=== PATIENT | male | born 1980 | race Caucasian/White ===

== ENCOUNTER 2016-11-12 09:26 | Inpatient (IN) | payer OTHER ==
[2016-11-12 10:02] LABS: BASO # 0.1 K/uL (0.0-0.2); BASO % 0.5 % (0.0-2.0); EOS # 0.1 K/uL (0.0-0.7); EOS % 0.7 % (0.0-4.0); HEMATOCRIT 56.3 % (35.0-51.0); LYMPH # 3.9 K/uL (1.0-4.3); LYMPH % 31.3 % (20.0-40.0); MEAN CELL VOLUME 88.2 fL (80.0-94.0); MEAN CORPUSCULAR HEMOGLOBIN 29.4 pg (27.0-31.0); MEAN CORPUSCULAR HGB CONC 33.4 g/dL (33.0-37.0); MEAN PLATELET VOLUME 9.1 fL (7.2-11.7); MONO # 0.8 K/uL (0.0-0.8); MONO % 6.6 % (0.0-10.0); NRBC % 0.2 % (0.0-2.0); RED CELL DISTRIBUTION WIDTH 13.6 % (11.5-14.5); WHITE BLOOD COUNT 12.4 K/uL (4.8-10.8)
[2016-11-12 10:08] LABS: CHLORIDE 95 mmol/L (98-107)
[2016-11-12 10:09] LABS: POTASSIUM 4.4 mmol/L (3.6-5.2); SODIUM 139 mmol/L (132-148)
[2016-11-12 10:11] LABS: ALB/GLOB RATIO 1.2 (1.0-2.1); ALKALINE PHOSPHATASE 115 U/L (38-126); AST/SGOT 62 U/L (17-59); BILIRUBIN,TOTAL 1.2 mg/dL (0.2-1.3); BLOOD UREA NITROGEN 13 mg/dL (9-20); CARBON DIOXIDE 25 mmol/L (22-30); GFR AFRICAN-AMERICAN > 60; TOTAL PROTEIN 9.2 g/dL (6.3-8.3)
[2016-11-12 10:12] LABS: ALT/SGPT 54 U/L (21-72); CALCIUM 9.3 mg/dl (8.6-10.4); GLUCOSE,RANDOM 102 mg/dL (75-110)
[2016-11-12 10:17] LABS: INR 1.1
--- NOTE | 2016-11-12 10:22 | RAD ---
HISTORY: PALPITATIONS COMPARISON: None available. TECHNIQUE: Chest, one view. FINDINGS: Examination limited by habitus and hypoinflation. LUNGS: No focal consolidation. Please note that chest x-ray has limited sensitivity for the detection of pulmonary masses. PLEURA: No significant pleural effusion identified. No definite pneumothorax . CARDIOVASCULAR: The cardiomediastinal silhouette appears within normal limits of size. OSSEOUS STRUCTURES: No acute osseous abnormality identified. VISUALIZED UPPER ABDOMEN: Unremarkable. OTHER FINDINGS: None. IMPRESSION: No focal consolidation, significant pleural effusion, or definite pneumothorax identified.
[2016-11-12 10:41] LABS: THYROID STIMULATING HORMONE 1.19 mIU/L (0.46-4.68)
[2016-11-12] MEDS ORDERED: Sodium Chloride 0.9% 1,000 ML IV ONE ×2 (10:50→11:45)
--- NOTE | 2016-11-12 11:00 | C.PDOC ---
History Of Present Illness 36-year-old male, presents to the emergency department with complaints of chest pain and palpitations x2 days. Patient denies any shortness of breath, cough, fevers, nausea/vomiting, diarrhea, leg pain, dizziness, or any other associated symptoms. No other complaints at this time. Time Seen by Provider: 11/12/16 09:35 Chief Complaint (Nursing): Chest Pain History Per: Patient History/Exam Limitations: no limitations Onset/Duration Of Symptoms: Days Past Medical History Reviewed: Historical Data, Nursing Documentation, Vital Signs Vital Signs: Last Vital Signs Temp 98.7 F 11/12/16 09:42 Pulse 151 H 11/12/16 12:09 Resp 20 11/12/16 12:09 BP 136/81 11/12/16 12:09 Pulse Ox 97 11/12/16 13:10 Family History: States: No Known Family Hx - Social History Hx Tobacco Use: No Hx Alcohol Use: Yes Hx Substance Use: No - Immunization History Hx Tetanus Toxoid Vaccination: No Hx Influenza Vaccination: No Hx Pneumococcal Vaccination: No Review Of Systems Except As Marked, All Systems Reviewed And Found Negative. Constitutional: Negative for: Fever, Chills Cardiovascular: Positive for: Chest Pain, Palpitations Respiratory: Negative for: Shortness of Breath Gastrointestinal: Negative for: Nausea, Vomiting Musculoskeletal: Negative for: Back Pain Skin: Negative for: Rash Neurological: Negative for: Weakness, Numbness, Headache, Dizziness Physical Exam - Physical Exam Appears: Non-toxic, No Acute Distress, Other (anxious) Skin: Warm, Dry, No Rash Eye(s): bilateral: Normal Inspection, PERRL, EOMI Nose: Normal Oral Mucosa: Moist Lips: Normal Appearing Neck: Normal ROM Chest: Symmetrical Cardiovascular: Rhythm Regular (tachycardia) Respiratory: Normal Breath Sounds Gastrointestinal/Abdominal: Soft, No Tenderness Back: Normal Inspection Extremity: Normal ROM, No Pedal Edema DTR: Knee (L): 0 Neurological/Psych: Oriented x3 ED Course And Treatment - Laboratory Results Result Diagrams: 11/12/16 09:51 11/12/16 09:51 ECG: Interpreted By Me, Viewed By Me ECG Rhythm: Sinus Tachycardia ECG Interpretation: No Acute Changes Interpretation Of ECG: left axis deviation Rate From EC O2 Sat by Pulse Oximetry: 97 - Other Rad cxr X-Ray: Viewed By Me, Read By Radiologist Interpretation: Accession No. : [id number]. Patient Name / ID : SARAI CANNON / [id number]. Exam Date : 11/12/2016 09:42:20 ( Approved ). Study Comment : Sex / Age : M / 36Y. Creator : CHARLY MAJANO. Dictator : Jeanne Lawrence MD. Black Top Roller : Dispatch Lead : Jeanne Lawrence MD. Approver2 : Report Date : 11/12/2016 09:56:34. My Comment : . HISTORY: PALPITATIONS. COMPARISON: None available. TECHNIQUE: Chest, one view. FINDINGS: Examination limited by habitus and hypoinflation. LUNGS: No focal consolidation. Please note that chest x-ray has limited sensitivity for the detection of pulmonary masses. PLEURA: No significant pleural effusion identified. No definite pneumothorax . CARDIOVASCULAR: The cardiomediastinal silhouette appears within normal limits of size. OSSEOUS STRUCTURES: No acute osseous abnormality identified. VISUALIZED UPPER ABDOMEN: Unremarkable. OTHER FINDINGS: None. IMPRESSION: No focal consolidation, significant pleural effusion, or definite pneumothorax identified. Progress Note: Blood work, EKG, CXR, UA, UDS ordered and reviewed. Patient admits to drinking alcohol regularly, so IV bolus NS + IV aivan given. No tremors noted on physical exam. 11:45am- Heart rate without significant improvement, still sinus tachycardia with short UT interval, without evidence of delta waves/WPW morphology. Cardizem 20mg IVP given, as well as IV morphine for pain and PO ASA. 2:00pm- Heart rate fluctuates betweem 90-140bpm, regularly , sinus rhythm. Discussed with Dr. Gipson, who agrees with admission for palpitations, tachycardia. Will give PO Cardizem at this time as well. - Scribe Statement The provider has reviewed the documentation as recorded by the Scribe Ankit Baum All medical record entries made by the Scribe were at my direction and personally dictated by me. I have reviewed the chart and agree that the record accurately reflects my personal performance of the history, physical exam, medical decision making, and the department course for this patient. I have also personally directed, reviewed, and agree with the discharge instructions and disposition.
[2016-11-12] MEDS ORDERED: Morphine 4 MG/ML VIAL ONE (11:28)
[2016-11-12 12:49] LABS: RBC URINE 11 /hpf (0-3); URINE BILIRUBIN NEGATIVE (NEGATIVE); URINE BLOOD 2+ (NEGATIVE); URINE COLOR Yellow (YELLOW); URINE GLUCOSE (UA) NORMAL (Normal); URINE KETONE TRACE mg/dL (NEGATIVE); URINE LEUKOCYTE ESTERASE NEG Leu/uL (Negative); URINE PROTEIN 2+ mg/dL (NEGATIVE); URINE UROBILINOGEN NORMAL mg/dL (0.2-1.0); WBC URINE 4 /hpf (0-5)
--- NOTE | 2016-11-12 14:32 | CP.PCM.HP ---
History of Present Illness - History of Present Illness History of Present Illness: COMPREHENSIVE HISTORY & PHYSICAL EXAM HPI 36 years old male brought in to [facility] emergency room with palpitations and generalized feeling tired, fatigue and malaise and unsteady on the gait. On further inquiry patient was drinking more than usual the day before the admission and woke up with severe palpitation.. Patient was evaluated in [facility] H the rhythm showed sinus tachycardia at about 140-150 and sometimes to 170. Patient was given beta lashawn and Cardizem IV push and patient responded witeart rate of about 1:30. On reviewing old charts patient was admitted in 2010 for SVT and [place]. Patient also states that when he drinks heavily. He is experiences palpitation. PAST HIST. there is no history of yobani artery disease, hypertension,betes or previous MA PERSONAL HIST: Smoking. N Alcohol. y Allergy N Travel_- . FAMILY HIST : ROS : Constitutional: Negative for weight change, chills, night sweats, fatigue and usage of assist device. Eyes: Negative for redness, swelling, itching, discharge, vision changes, blurry vision, double vision, glaucoma, cataracts, Ears: Negative for hearing loss, ringing, , tinnitus, vertigo Nose: Negative for rhinorrhea, stuffiness, sniffing, itching, postnasal drip, discoloration, nasal congestion and epistaxis. Throat: Negative for throat clearing, sore throat, hoarseness, difficulty swallowing and difficulty speaking. Respiratory: Negative for cough, chest tightness, sputum or phlegm, chronic cough, hemoptysis, wheezing, snoring at night, pleuritic chest pain and daytime somnolence. Cardiovascular: POS for chest pain, palpitations, orthopnea, PND, NO Edema of legs, leg cramps, angina, claudication, , irregular heartbeat, Neurology: Negative for irritability, muscle weakness, numbness and tingling, seizures, tremors, migraines, slurred speech, syncope, memory loss, mood changes , recurrent headaches Gastrointestinal: Negative for difficulty swallowing, diarrhea, constipation, black stools, rectal bleeding, nausea, flatulence, reflux, poor appetite, changes in bowel habits, abdominal pain Genitourinary: Negative for frequent urination, hematuria, discharge, incontinence, urinary retention, frequent UTI, Psychiatric: Negative for depression, anxiety/panic, suicidal tendencies, Musculoskeletal: Negative for swollen joints, back pain, , neck pain, morning stiffness of joints, . Skin: Negative for rash, ulcers, itching, dry skin and pigmented lesions. P/E: Constitutional: Appears stated age and in no apparent distress. Head: Normocephalic. Ears: External ear canals patent without inflammation. Tympanic membranes intact with normal light reflex and landmark. Eyes: Pupils are central, bilaterally equal, symmetrical and reacts to light with normal movements and no icterus or pallor. Nose: External nares are patent. Mucosa is pink Mouth-Throat: Good general appearance and condition. No post-pharyngeal/oropharyngeal erythema and tonsillar hypertrophy. Good dental hygiene. Neck-Lymphatic: Neck is supple with normal ROM, no thyromegaly, lymph nodes or masses. JVD is normal with no carotid bruit. Lungs: Clear to percussion and auscultation with bilateral normal air entry. Cardiovascular: S1 and S2 are normal with no murmurs, gallops and rub. GI Exam: No hepatomegaly. Abdomen is soft and non-tender. No Organomegaly , masses or hernias are evident and bowel sounds are normal and active. Neurology: Higher function and all cranial nerves intact, with no gross motor or sensory deficit. Superficial and deep reflexes are normal with downwards planters. No cerebellar deficit with normal gait. Musculoskeletal: No tender spots with normal curvature of the spine with no swelling or restricted ROM of the small and large joints. Extremities: Homans sign absent. Intact pulses with no pitting edema, calf tenderness or skin color changes. Skin: No rash, eruptions or abnormal skin pigmentation LAB/RADIOLOGY: ASSESMENT : sinus tachycardia with symptoms probably secondary to alcohol intoxication. Generalized fatigue and weakness and unsteady gait, probably also secondary to alcohol. PLAN: currently, we will add blockers [id number] and observe for alcohol withdrawal. Present on Admission - Present on Admission Any Indicators Present on Admission: No Past Patient History - Infectious Disease Hx of Infectious Diseases: None - Past Social History Smoking Status: Never Smoked - PSYCHIATRIC Hx Substance Use: No - SURGICAL HISTORY Hx Surgeries: Yes Other/Comment: left inguinal hernia. - ANESTHESIA Hx Anesthesia: Yes Hx Anesthesia Reactions: No Meds Allergies/Adverse Reactions: Allergies Allergy/AdvReac Type Severity Reaction Status Date / Time No Known Allergies Allergy Verified 11/12/16 09:40 Results - Vital Signs Recent Vital Signs: Last Vital Signs Temp 98.7 F 11/12/16 09:42 Pulse 151 H 11/12/16 12:09 Resp 20 11/12/16 12:09 BP 136/81 11/12/16 12:09 Pulse Ox 97 11/12/16 14:11 - Labs Result Diagrams: 11/12/16 09:51 11/12/16 09:51
[2016-11-12] MEDS ORDERED: Aspirin 325 mg EC Tablets PO ONE (15:15)
--- NOTE | 2016-11-12 17:45 | US ---
HISTORY: epigastric pain COMPARISON: None available. TECHNIQUE: Sonographic evaluation of the right upper quadrant of the abdomen. FINDINGS: LIVER: Measures 16.2 cm in length.Echogenic liver may be seen in setting of hepatic parenchymal disease or fatty infiltration. No focal hepatic mass identified. The main portal No intrahepatic bile duct dilatation. GALLBLADDER: No gallstones. No gallbladder wall thickening or pericholecystic edema. Negative sonographic Jo's sign as assessed by the trimming machine set up operator. COMMON BILE DUCT: Measures 3 mm. No stones. No dilatation. PANCREAS: Not well-visualized. RIGHT KIDNEY: Measures 12.2 x 5.7 x 5.7 cm. No obstructing calculus or hydronephrosis identified AORTA: Limited visualization appears grossly unremarkable. IVC: Limited visualization appears grossly unremarkable. OTHER FINDINGS: None . IMPRESSION: Echogenic liver may be seen in setting of hepatic parenchymal disease or fatty infiltration.
--- NOTE | 2016-11-13 11:53 | CARD ---
APPROVED REPORT EKG Measurement Heart [id number] NH [id number] <Conclusion> Sinus tachycardia Possible Left atrial enlargement Borderline ECG
--- NOTE | 2016-11-13 11:59 | CARD ---
APPROVED REPORT EKG Measurement Heart [id number] MD [id number] <Conclusion> Sinus tachycardia with short MD Left axis deviation Abnormal ECG
--- NOTE | 2016-11-13 12:01 | CARD ---
APPROVED REPORT EKG Measurement Heart [id number] HI 98P49 [id number] <Conclusion> Sinus tachycardia with short HI Junctional ST depression, probably normal Borderline ECG
--- NOTE | 2016-11-13 12:11 | CARD ---
APPROVED REPORT EXAM: Two-dimensional and M-mode echocardiogram with Doppler and color Doppler. Other Information Quality : GoodRhythm : NSR INDICATION Chest Pain Palpitations TACHYCARDIA M-Mode DIMENSIONS RVDd1.53 (2.1-3.2cm)Left Atrium (MM)3.37 (2.5-4.0cm) IVSd0.87 (0.7-1.1cm)Aortic Root3.40 (2.2-3.7cm) LVDd4.82 (4.0-5.6cm)Aortic Cusp Exc.1.94 (1.5-2.0cm) PWd0.87 (0.7-1.1cm)FS (%) 39 % LVDs2.95 (2.0-3.8cm)LVEF (%)69 (>50%) Aortic Valve AoV Peak Vldtdixf505.7cm/Rhonda Peak GR.14mmHg Mitral Valve MV E Iwgvjyff32.1cm/sMV A Ppcuusbh35.3cm/sE/A ratio1.1 TDI E/Lateral E'0.0E/Medial E'0.0 Tricuspid Valve TR Peak Jxnfzevq507kk/sTR Peak Gr.12tqTyKQHB79cgUq LEFT VENTRICLE The left ventricle is normal size. There is normal left ventricular wall thickness. The left ventricular function is normal. The left ventricular ejection fraction is within the normal range. No regional wall motion abnormalities noted. The left ventricular diastolic function is normal. No left ventricle thrombus noted on this study. There is no ventricular septal defect visualized. There is no left ventricular aneurysm. There is no mass noted in the left ventricle. RIGHT VENTRICLE The right ventricle is normal size. There is normal right ventricular wall thickness. The right ventricular systolic function is normal. ATRIA The left atrium size is normal. The right atrium size is normal. The interatrial septum is intact with no evidence for an atrial septal defect. AORTIC VALVE The aortic valve is normal in structure and function. No aortic regurgitation is present. There is no aortic valvular stenosis. There is no aortic valvular vegetation. MITRAL VALVE The mitral valve is normal in structure and function. There is no evidence of mitral valve prolapse. There is no mitral valve stenosis. There is no mitral valve regurgitation noted. TRICUSPID VALVE The tricuspid valve is normal in structure and function. There is mild tricuspid regurgitation. Right ventricular systolic pressure is estimated at less than 30 mmHg. There is no tricuspid valve prolapse or vegetation. There is no tricuspid valve stenosis. PULMONIC VALVE The pulmonary valve is normal in structure and function. There is no pulmonic valvular regurgitation. There is no pulmonic valvular stenosis. GREAT VESSELS The aortic root is normal in size. The ascending aorta is normal in size. The pulmonary artery is normal. The IVC is normal in size and collapses >50% with inspiration. PERICARDIAL EFFUSION The pericardium appears normal. There is no pleural effusion. <Conclusion> The left ventricular function is normal. The left ventricular ejection fraction is within the normal range. No regional wall motion abnormalities noted.
--- NOTE | 2016-11-13 13:26 | CP.PCM.PN ---
Subjective - Date & Time of Evaluation Date of Evaluation: 11/13/16 Time of Evaluation: 13:25 - Subjective Subjective: CHIEF COMPLAINTS TODAY : NO FURTHER PALPITATION STILL UNSTEADY ON FEET ROS. HEENT : N. Resp : No cough, wheezing ,pleuritic CP ,or hemoptysis Cardio : No anginal CP, PND, orthopnea, palpitation GI : No abd.pain, n/v ,diarrhea or GI bleeding . PLASTER FOREMAN : No headache, vertigo, focal deficit. Musculoskel : No joint swelling , Derm : No rash Psych : Normal affect. Ext : No swelling ,calf pain PE. Pt. is alert awake in no distress. V.S As noted in the chart Head ,ear nose,throat and eyes : Normal. Neck : Supple with normal carotids. Lungs: Clear air entry. Heart : S1 & S2 normal with S4. No murmur. Abd : Soft non tender with normal bowel sounds. Neuro : Moves all ext. with no localized deficit. Ext : No edema with intact pulses.Non tender calves Derm : No rashes or decubitus ulcer. LABS/RADIOLOGY: CHECK ECHO ASSESSMENT/PLAN : CONT B-DANIEL Objective - Vital Signs/Intake and Output Vital Signs (last 24 hours): Temp Pulse Resp BP Pulse Ox 98 F 76 18 113/64 100 11/13/16 07:15 11/13/16 10:01 11/13/16 07:15 11/13/16 10:01 11/13/16 07:15 Intake and Output: 11/13/16 11/13/16 11:59 23:59 Intake Total 120 Balance 120 - Medications Medications: Current Medications Propranolol HCl (Inderal) 20 mg PO TID [facility] Last Admin: 11/13/16 10:03 Dose: 20 mg - Labs Labs: PT 12.0 SECONDS (9.7-12.2) 11/12/16 09:51 INR 1.1 11/12/16 09:51 APTT 29 SECONDS (21-34) 11/12/16 09:51
[2016-11-14 06:18] LABS: BASO % 0.3 % (0.0-2.0); EOS # 0.1 K/uL (0.0-0.7); EOS % 1.4 % (0.0-4.0); HEMATOCRIT 42.5 % (35.0-51.0); LYMPH # 2.3 K/uL (1.0-4.3); MEAN CELL VOLUME 89.4 fL (80.0-94.0); MEAN CORPUSCULAR HEMOGLOBIN 29.9 pg (27.0-31.0); MEAN CORPUSCULAR HGB CONC 33.5 g/dL (33.0-37.0); MEAN PLATELET VOLUME 9.4 fL (7.2-11.7); MONO # 0.6 K/uL (0.0-0.8); MONO % 8.6 % (0.0-10.0); NRBC % 0.1 % (0.0-2.0); RED CELL DISTRIBUTION WIDTH 13.2 % (11.5-14.5); WHITE BLOOD COUNT 6.8 K/uL (4.8-10.8)
[2016-11-14 07:00] LABS: CHLORIDE 97 mmol/L (98-107); POTASSIUM 4.5 mmol/L (3.6-5.2); SODIUM 136 mmol/L (132-148)
[2016-11-14 07:02] LABS: AST/SGOT 43 U/L (17-59); BILIRUBIN,TOTAL 0.9 mg/dL (0.2-1.3); CARBON DIOXIDE 30 mmol/L (22-30); GFR AFRICAN-AMERICAN > 60
[2016-11-14 07:03] LABS: ALB/GLOB RATIO 1.3 (1.0-2.1); ALKALINE PHOSPHATASE 68 U/L (38-126); ALT/SGPT 36 U/L (21-72); BLOOD UREA NITROGEN 17 mg/dL (9-20); CALCIUM 8.5 mg/dl (8.6-10.4); GLUCOSE,RANDOM 101 mg/dL (75-110); TOTAL PROTEIN 6.9 g/dL (6.3-8.3)
--- NOTE | 2016-11-14 13:29 | CP.PCM.DIS ---
Provider - Provider Date of Admission: 11/12/16 14:02 Attending physician: Gena Gipson MD Time Spent in preparation of Discharge (in minutes): 35 Hospital Course - Lab Results Lab Results: Most Recent Lab Values WBC 6.8 K/uL (4.8-10.8) 11/14/16 05:21 RBC 4.76 Mil/uL (4.40-5.90) 11/14/16 05:21 Hgb 14.2 g/dL (12.0-18.0) D 11/14/16 05:21 Hct 42.5 % (35.0-51.0) 11/14/16 05:21 MCV 89.4 fL (80.0-94.0) 11/14/16 05:21 MCH 29.9 pg (27.0-31.0) 11/14/16 05:21 MCHC 33.5 g/dL (33.0-37.0) 11/14/16 05:21 RDW 13.2 % (11.5-14.5) 11/14/16 05:21 Plt Count 209 K/uL (130-400) D 11/14/16 05:21 MPV 9.4 fL (7.2-11.7) 11/14/16 05:21 Neut % (Auto) 55.7 % (50.0-75.0) 11/14/16 05:21 Lymph % (Auto) 34.0 % (20.0-40.0) 11/14/16 05:21 Vance % (Auto) 8.6 % (0.0-10.0) 11/14/16 05:21 Eos % (Auto) 1.4 % (0.0-4.0) 11/14/16 05:21 Baso % (Auto) 0.3 % (0.0-2.0) 11/14/16 05:21 Neut # 3.8 K/uL (1.8-7.0) 11/14/16 05:21 Lymph # 2.3 K/uL (1.0-4.3) 11/14/16 05:21 Vance # 0.6 K/uL (0.0-0.8) 11/14/16 05:21 Eos # 0.1 K/uL (0.0-0.7) 11/14/16 05:21 Baso # 0.0 K/uL (0.0-0.2) 11/14/16 05:21 PT 12.0 SECONDS (9.7-12.2) 11/12/16 09:51 INR 1.1 11/12/16 09:51 APTT 29 SECONDS (21-34) 11/12/16 09:51 D-Dimer, Quantitative 233 ng/mlDDU (0-243) 11/12/16 09:51 Sodium 136 mmol/L (132-148) 11/14/16 05:21 Potassium 4.5 mmol/L (3.6-5.2) 11/14/16 05:21 Chloride 97 mmol/L (98-107) L 11/14/16 05:21 Carbon Dioxide 30 mmol/L (22-30) 11/14/16 05:21 Anion Gap 14 (10-20) 11/14/16 05:21 BUN 17 mg/dL (9-20) 11/14/16 05:21 Creatinine 1.0 MG/DL (0.8-1.5) 11/14/16 05:21 Est GFR ( Amer) > 60 11/14/16 05:21 Est GFR (Non-Af Amer) > 60 11/14/16 05:21 POC Glucose (mg/dL) 79 mg/dL (65-110) 11/12/16 10:01 Random Glucose 101 mg/dL (75-110) 11/14/16 05:21 Calcium 8.5 mg/dl (8.6-10.4) L 11/14/16 05:21 Total Bilirubin 0.9 mg/dL (0.2-1.3) 11/14/16 05:21 AST 43 U/L (17-59) 11/14/16 05:21 ALT 36 U/L (21-72) 11/14/16 05:21 Alkaline Phosphatase 68 U/L (38-126) 11/14/16 05:21 Total Creatine Kinase 459 U/L (55-170) H 11/13/16 08:41 CK-MB (Mass) 1.34 ng/mL (0.0-3.38) 11/13/16 08:41 Troponin I < 0.0120 ng/mL (0.00-0.120) 11/12/16 09:51 Troponin I, Quant < 0.0120 ng/mL (0.00-0.120) 11/13/16 08:41 Total Protein 6.9 g/dL (6.3-8.3) 11/14/16 05:21 Albumin 3.9 g/dL (3.5-5.0) 11/14/16 05:21 Globulin 3.0 gm/dL (2.2-3.9) 11/14/16 05:21 Albumin/Globulin Ratio 1.3 (1.0-2.1) 11/14/16 05:21 TSH 3rd Generation 1.19 mIU/L (0.46-4.68) 11/12/16 09:51 Urine Color Yellow (YELLOW) 11/12/16 12:35 Urine Clarity Hazy (Clear) 11/12/16 12:35 Urine pH 5.0 (5.0-8.0) 11/12/16 12:35 Ur Specific [place] 1.019 (1.003-1.030) 11/12/16 12:35 Urine Protein 2+ mg/dL (NEGATIVE) H 11/12/16 12:35 Urine Glucose (UA) Normal mg/dL (Normal) 11/12/16 12:35 Urine Ketones Trace mg/dL (NEGATIVE) 11/12/16 12:35 Urine Blood 2+ (NEGATIVE) H 11/12/16 12:35 Urine Nitrate Negative (NEGATIVE) 11/12/16 12:35 Urine Bilirubin Negative (NEGATIVE) 11/12/16 12:35 Urine Urobilinogen Normal mg/dL (0.2-1.0) 11/12/16 12:35 Ur Leukocyte Esterase Neg Carleen/uL (Negative) 11/12/16 12:35 Urine WBC (Auto) 4 /hpf (0-5) 11/12/16 12:35 Urine RBC (Auto) 11 /hpf (0-3) H 11/12/16 12:35 Ur Squamous Epith Cells 2 /hpf (0-5) 11/12/16 12:35 Hyaline Casts 3-5 /lpf (0-2) H 11/12/16 12:35 Urine Opiates Screen Negative (NEGATIVE) 11/12/16 12:35 Urine Methadone Screen Negative (NEGATIVE) 11/12/16 12:35 Ur Barbiturates Screen Negative (NEGATIVE) 11/12/16 12:35 Ur Phencyclidine Scrn Negative (NEGATIVE) 11/12/16 12:35 Ur Amphetamines Screen Negative (NEGATIVE) 11/12/16 12:35 U Benzodiazepines Scrn Negative (NEGATIVE) 11/12/16 12:35 U Oth Cocaine Metabols Negative (NEGATIVE) 11/12/16 12:35 U Cannabinoids Screen Negative (NEGATIVE) 11/12/16 12:35 - Hospital Course Hospital Course: 36 years old male brought in to [facility] emergency room with palpitations and generalized feeling tired, fatigue and malaise and unsteady on the gait. On further inquiry patient was drinking more than usual the day before the admission and woke up with severe palpitation.. Patient was evaluated in [facility]. H the rhythm showed sinus tachycardia at about 140-150 and sometimes to 170. Patient was given beta lashawn and Cardizem IV push and patient responded witeart rate of about 1:30. On reviewing old charts patient was admitted in 2010 for SVT and [place]. Patient also states that when he drinks heavily. He is experiences palpitation. PT RESPONDED WITH INDERAL ECHO WAS NEG ALL PRELIMINARY W/U WERE NEG PT STABLE FOR DISCHARGE OUT PT STRESS TEST Discharge Plan - Follow Up Plan Condition: GOOD Disposition: HOME/ ROUTINE
[2016-11-14 15:54] VITALS: BP 125/74; PULSE 68; RESP 20; TEMP 97.9; O2SAT 98
--- NOTE | 2016-11-14 16:45 | CP.PCM.PN ---
Subjective - Date & Time of Evaluation Date of Evaluation: 11/14/16 Time of Evaluation: 16:45 - Subjective Subjective: Alert awake, no palpitations ,NAD. Objective - Vital Signs/Intake and Output Vital Signs (last 24 hours): Temp Pulse Resp BP Pulse Ox 97.9 F 68 20 125/74 98 11/14/16 15:38 11/14/16 15:38 11/14/16 15:38 11/14/16 15:38 11/14/16 15:38 Intake and Output: 11/14/16 11/14/16 06:59 18:59 Intake Total 120 500 Output Total 850 Balance -730 500 - Medications Medications: Current Medications Propranolol HCl (Inderal) 20 mg PO TID BUZZ Last Admin: 11/14/16 14:41 Dose: 20 mg - Labs Labs: 11/14/16 05:21 11/14/16 05:21 PT 12.0 SECONDS (9.7-12.2) 11/12/16 09:51 INR 1.1 11/12/16 09:51 APTT 29 SECONDS (21-34) 11/12/16 09:51 Assessment and Plan - Assessment and Plan (Free Text) Assessment: Patient is seen and examined. Denies sob or palpitations. D/W DR Gipson, plan to discharge home on po inderal 10mg [id number]. Advised to follow up in the office in 1 week.
== END 2016-11-14 17:15 | disposition home or self-care (01) | DRG 310 ==
LOC: C.ER 09:26 → C.9E 14:02 → C.6T 14:35
PROVIDERS: ADMIT Internal Medicine Cardiovascular Disease; ATTEND Internal Medicine Cardiovascular Disease
DX: R00.2 Palpitations (principal); F10.129 Alcohol abuse with intoxication, unspecified

== ENCOUNTER 2016-11-17 18:43 | Emergency (ER) | payer OTHER ==
[2016-11-17 19:04] VITALS: O2SAT 100
[2016-11-17 19:50] LABS: BASO % 0.6 % (0.0-2.0); EOS # 0.2 K/uL (0.0-0.7); HEMATOCRIT 45.6 % (35.0-51.0); LYMPH # 2.9 K/uL (1.0-4.3); LYMPH % 33.5 % (20.0-40.0); MEAN CELL VOLUME 88.6 fL (80.0-94.0); MEAN CORPUSCULAR HEMOGLOBIN 30.1 pg (27.0-31.0); MEAN PLATELET VOLUME 10.3 fL (7.2-11.7); MONO # 0.7 K/uL (0.0-0.8); MONO % 7.7 % (0.0-10.0); RED CELL DISTRIBUTION WIDTH 13.2 % (11.5-14.5); WHITE BLOOD COUNT 8.5 K/uL (4.8-10.8)
[2016-11-17 20:09] LABS: URINE BACTERIA RARE (<OCC); URINE BILIRUBIN NEGATIVE (NEGATIVE); URINE BLOOD NEGATIVE (NEGATIVE); URINE COLOR Straw (YELLOW); URINE GLUCOSE (UA) NORMAL (Normal); URINE KETONE NEGATIVE (NEGATIVE); URINE LEUKOCYTE ESTERASE NEG Leu/uL (Negative); URINE PROTEIN NEGATIVE (NEGATIVE); URINE UROBILINOGEN NORMAL mg/dL (0.2-1.0); WBC URINE 1 /hpf (0-5)
[2016-11-17 20:15] LABS: CHLORIDE 98 mmol/L (98-107); SODIUM 137 mmol/L (132-148)
[2016-11-17 20:17] LABS: ALKALINE PHOSPHATASE 81 U/L (38-126); AST/SGOT 55 U/L (17-59); BILIRUBIN,TOTAL 0.6 mg/dL (0.2-1.3); CARBON DIOXIDE 25 mmol/L (22-30); GFR AFRICAN-AMERICAN > 60; TOTAL PROTEIN 8.4 g/dL (6.3-8.3)
[2016-11-17 20:18] LABS: ALT/SGPT 78 U/L (21-72); BLOOD UREA NITROGEN 11 mg/dL (9-20); CALCIUM 9.4 mg/dl (8.6-10.4); GLUCOSE,RANDOM 99 mg/dL (75-110)
--- NOTE | 2016-11-17 21:48 | C.PDOC ---
History Of Present Illness The patient, a 36 y/o male, presents to the ED for evaluation of chest discomfort which began around 5 days ago. Patient was evaluated in [facility] on for symptoms of palpitations. Patient was treated with Cardizem and was discharged with Inderal TID. Patient notes his palpitations have been continuing intermittently since he was discharged. Today, patient experienced chest discomfort with "bubbling" sensation in stomach. Patient also feels "cramping" sensation throughout his body. He denies fever, chills, cough, shortness of breath, nausea, vomiting, extremity numbness/weakness. Time Seen by Provider: 11/17/16 19:06 Chief Complaint (Nursing): Chest Pain History Per: Patient History/Exam Limitations: no limitations Onset/Duration Of Symptoms: Days Current Symptoms Are (Timing): Still Present Quality: "Pain" Additional History Per: Patient Past Medical History Reviewed: Historical Data, Nursing Documentation, Vital Signs Vital Signs: Last Vital Signs Temp 99.1 F 11/17/16 22:36 Pulse 96 H 11/17/16 21:50 Resp 12 11/17/16 21:50 BP 109/79 11/17/16 21:50 Pulse Ox 100 11/18/16 06:55 - Medical History Other PMH: PSVT Surgical History: No Surg Hx Family History: States: Unknown Family Hx - Social History Hx Tobacco Use: No Hx Alcohol Use: Yes Hx Substance Use: No Review Of Systems Except As Marked, All Systems Reviewed And Found Negative. Constitutional: Negative for: Fever, Chills Cardiovascular: Positive for: Palpitations, Other (+chest discomfort ) Gastrointestinal: Positive for: Abdominal Pain. Negative for: Nausea, Vomiting Physical Exam - Physical Exam Appears: Non-toxic, No Acute Distress Skin: Normal Color, Warm, Dry Head: Atraumatic, Normacephalic Eye(s): bilateral: Normal Inspection, PERRL, EOMI Oral Mucosa: Moist Neck: Normal ROM, Supple Chest: Symmetrical, No Tenderness Cardiovascular: Rhythm Regular, No Murmur Respiratory: Normal Breath Sounds, No Rales, No Rhonchi, No Wheezing Gastrointestinal/Abdominal: Soft, No Tenderness Back: Normal Inspection, No Vertebral Tenderness Extremity: Normal ROM, No Pedal Edema Neurological/Psych: Oriented x3, Normal Speech, Normal Cognition Gait: Steady ED Course And Treatment - Laboratory Results Result Diagrams: 11/17/16 19:47 11/17/16 20:02 ECG: Interpreted By Me ECG Rhythm: Sinus Rhythm ECG Interpretation: No Acute Changes Interpretation Of ECG: RSR' V1 c/w early rv conduction delay Rate From EC O2 Sat by Pulse Oximetry: 100 (on RA) Pulse Ox Interpretation: Normal - Radiology CXR: Interpreted by Me CXR Interpretation: Yes: No Acute Disease Medical Decision Making Medical Decision Making: Plan: * labs * EKG * CXR * Ativan IV * Pepcid IV * Toradol IV * reassess adn disposition Progress: labs, EKG, CXR ordered and reviewed. Patient received Pepcid IV, and Toradol IV. Pt had episode of "cramp all over" in the ED with HR to 130 sinus. treated with ativa with resolution Discussed with dr Gipson who will see pt in the office on Saturday Disposition Counseled Patient/Family Regarding: Studies Performed, Diagnosis, Need For Followup - Disposition Disposition: HOME/ ROUTINE Disposition Time: 22:20 Condition: FAIR Additional Instructions: See Dr Gipson on Saturday for further evaluation Take your usual medicine Instructions: Chest Pain (ED), Weakness (ED) Print Language: KAZAKH - Clinical Impression Clinical Impression: Chest pain, Palpitations, Weakness - Scribe Statement The provider has reviewed the documentation as recorded by the Scribe (Yana Mendez) Provider Attestation: All medical record entries made by the Scribe were at my direction and personally dictated by me. I have reviewed the chart and agree that the record accurately reflects my personal performance of the history, physical exam, medical decision making, and the department course for this patient. I have also personally directed, reviewed, and agree with the discharge instructions and disposition.
[2016-11-17 21:53] VITALS: BP 109/79; PULSE 96; RESP 12
[2016-11-17 22:36] VITALS: TEMP 99.1
--- NOTE | 2016-11-18 08:18 | RAD ---
PROCEDURE: CHEST RADIOGRAPH, 1 VIEW HISTORY: chest pain COMPARISON: 11/12/2016 FINDINGS: LUNGS: Mild venous congestion. PLEURA: No pneumothorax or pleural fluid seen. CARDIOVASCULAR: Normal. OSSEOUS STRUCTURES: Degenerative changes at the bilateral acromioclavicular joint spaces; left greater than right. VISUALIZED UPPER ABDOMEN: Normal. OTHER FINDINGS: None. IMPRESSION: Mild venous congestion.
== END 2016-11-17 22:40 | disposition home or self-care (01) ==
LOC: C.ER 18:43
DX: R07.9 Chest pain, unspecified (principal); R00.2 Palpitations; R53.1 Weakness
CPT/HCPCS: 71010; 80053; 80324; 80345; 80346; 80349; 80353; 80358; 80361; 81001; 83690; 83992; 84484; 85025; 96374; 96375; 99285; J1885; J2060

== ENCOUNTER 2017-03-06 16:08 | Emergency (ER) | payer OTHER ==
[2017-03-06 17:10] VITALS: RESP 16; TEMP 98.3
--- NOTE | 2017-03-06 18:34 | CT ---
PROCEDURE: CT HEAD WITHOUT CONTRAST. HISTORY: headache x 3 days COMPARISON: None available. TECHNIQUE: Axial computed tomography images were obtained through the head/brain without intravenous contrast. Radiation dose: Total exam DLP = 1360.11 mGy-cm. This CT exam was performed using one or more of the following dose reduction techniques: Automated exposure control, adjustment of the mA and/or kV according to patient size, and/or use of iterative reconstruction technique. FINDINGS: HEMORRHAGE: No intracranial hemorrhage. BRAIN: No mass effect or edema. No atrophy or chronic microvascular ischemic changes.Please note that MRI with diffusion imaging is more sensitive in the detection of acute ischemic event. VENTRICLES: No hydrocephalus. CALVARIUM: Unremarkable. PARANASAL SINUSES: Unremarkable as visualized. No significant inflammatory changes. MASTOID AIR CELLS: Unremarkable as visualized. No inflammatory changes. OTHER FINDINGS: None. IMPRESSION: No acute intracranial pathology identified.
--- NOTE | 2017-03-06 19:14 | C.PDOC ---
History Of Present Illness 36 year old male presents to the ED for evaluation of a right-sided headache which began around 3 days ago. Patient notes he has never experienced similar symptoms in the past. He was able to find minimal relief after taking Tylenol. Patient states he was evaluated by his PMD 3 days ago and is scheduled for another appointment in 2 days. He denies fever, chills, neck pain, dizziness, nausea, vomiting. Time Seen by Provider: 03/06/17 17:14 Chief Complaint (Nursing): Headache History Per: Patient History/Exam Limitations: no limitations Onset/Duration Of Symptoms: Days (3) Current Symptoms Are (Timing): Still Present Quality: Aching Associated Symptoms: denies: Nausea, Vomiting Additional History Per: Patient Past Medical History Reviewed: Historical Data, Nursing Documentation, Vital Signs Vital Signs: Last Vital Signs Temp 98.3 F 03/06/17 17:07 Pulse 88 03/06/17 19:35 Resp 16 03/06/17 19:35 BP 135/77 03/06/17 19:35 Pulse Ox 98 03/06/17 23:17 - Medical History PMH: HTN Surgical History: No Surg Hx Family History: States: Unknown Family Hx - Social History Hx Tobacco Use: No Hx Alcohol Use: No Hx Substance Use: No - Immunization History Hx Tetanus Toxoid Vaccination: No Hx Influenza Vaccination: No Hx Pneumococcal Vaccination: No Review Of Systems Constitutional: Negative for: Fever, Chills Gastrointestinal: Negative for: Nausea, Vomiting Musculoskeletal: Negative for: Neck Pain Neurological: Positive for: Headache. Negative for: Dizziness Physical Exam - Physical Exam Appears: Non-toxic, No Acute Distress Skin: Normal Color, Warm, Dry Head: Atraumatic, Normacephalic Eye(s): bilateral: Normal Inspection Oral Mucosa: Moist Neck: Supple Extremity: Normal ROM Neurological/Psych: Normal Speech, Normal Cognition Gait: Steady ED Course And Treatment O2 Sat by Pulse Oximetry: 98 (on RA) Pulse Ox Interpretation: Normal - CT Scan/US CT Head Other Rad Studies (CT/US): Interpreted By Me, Read By Radiologist, Radiology Report Reviewed CT/US Interpretation: PROCEDURE: CT HEAD WITHOUT CONTRAST. HISTORY: headache x 3 days. COMPARISON: None available. TECHNIQUE: Axial computed tomography images were obtained through the head/brain without intravenous contrast. Radiation dose: Total exam DLP = 1360.11 mGy-cm. This CT exam was performed using one or more of the following dose reduction techniques: Automated exposure control, adjustment of the mA and/or kV according to patient size, and/ or use of iterative reconstruction technique. FINDINGS: HEMORRHAGE: No intracranial hemorrhage. BRAIN: No mass effect or edema. No atrophy or chronic microvascular ischemic changes.Please note that MRI with diffusion imaging is more sensitive in the detection of acute ischemic event. VENTRICLES : No hydrocephalus. CALVARIUM: Unremarkable. PARANASAL SINUSES: Unremarkable as visualized. No significant inflammatory changes. MASTOID AIR CELLS: Unremarkable as visualized. No inflammatory changes. OTHER FINDINGS: None. IMPRESSION: No acute intracranial pathology identified. Progress Note: CT Head ordered and reviewed. Patient received Reglan PO. On reassessment, patient is resting comfortably, showing no signs of distress and reports an improvement in his symptoms. Patient is stable for discharge and is advised to follow up with his PMD within 1-2 days for further evaluation and advised to return to ED if symptoms worsen. Reassessment Condition: Improved Disposition - Disposition Referrals: Darnell Phelps MD [Staff Provider] - Disposition: HOME/ ROUTINE Disposition Time: 19:11 Condition: STABLE Additional Instructions: Follow up with PMD within 1-2 days. Return to ED if feel worse. Prescriptions: Metoclopramide [Reglan] 1 tab PO TID PRN #25 tab PRN Reason: Headache traMADol/Acetaminophen [Ultracet 325 MG-37.5 MG] 1 tab PO Q6 PRN #20 tab PRN Reason: Pain Instructions: General Headache (ED) Forms: [facility] (Serbian) Print Language: TURKISH - Clinical Impression Clinical Impression: Headache - PA / CENTRAL SUPPLY NURSE / Resident Statement MD/DO has reviewed & agrees with the documentation as recorded. - Scribe Statement The provider has reviewed the documentation as recorded by the Scribe (Yana Mendez)
[2017-03-06 19:36] VITALS: BP 135/77; PULSE 88
[2017-03-06 21:24] VITALS: O2SAT 98
== END 2017-03-06 19:35 | disposition home or self-care (01) ==
LOC: C.ER 16:08
DX: R51 Headache (principal)

== ENCOUNTER 2017-07-23 23:24 | Emergency (ER) | payer OTHER ==
[2017-07-23 23:44] VITALS: RESP 20
[2017-07-24] MEDS ORDERED: Naproxen 550 mg Tab PO STA (00:16)
--- NOTE | 2017-07-24 00:25 | C.PDOC ---
History Of Present Illness pt is a 37 yo male who states that today while loading boxes on a truck approx 5 hrs ago had sudden onset of L sided CP which radiates to the L shoulder.Pain is positional,continuous,worsened by mvmt of the L shoulder Chief Complaint (Nursing): Chest Pain History Per: Patient History/Exam Limitations: language barrier Onset/Duration Of Symptoms: Hrs Current Symptoms Are (Timing): Still Present Severity: Moderate Pain Scale Rating Of: 6 Quality: Aching Associated Symptoms: denies: Nausea, Dyspnea, Diaphoresis, Syncope Exacerbating Factors: Movement. denies: Deep Breathing Alleviating Factors: None Past Medical History Vital Signs: Last Vital Signs Temp 98.5 F 07/23/17 23:40 Pulse 100 H 07/23/17 23:40 Resp 20 07/23/17 23:40 BP 130/96 H 07/23/17 23:40 Pulse Ox 99 07/24/17 01:24 - Medical History PMH: HTN Family History: States: Unknown Family Hx - Social History Hx Tobacco Use: No Hx Alcohol Use: No Hx Substance Use: No - Immunization History Hx Tetanus Toxoid Vaccination: No Hx Influenza Vaccination: No Hx Pneumococcal Vaccination: No Review Of Systems Except As Marked, All Systems Reviewed And Found Negative. Physical Exam - Physical Exam Appears: Well Skin: Normal Color Head: Atraumatic Eye(s): bilateral: Normal Inspection, PERRL, EOMI Ear(s): Left: Normal, Right: Normal Nose: Normal Tongue: Normal Appearing Throat: Normal Neck: Normal Chest: Symmetrical Cardiovascular: Rhythm Regular, No Edema, No Murmur, No JVD Respiratory: Normal Breath Sounds, No Rales, No Rhonchi Gastrointestinal/Abdominal: Normal Exam, Bowel Sounds Back: Normal Inspection Extremity: Normal ROM Neurological/Psych: Oriented x3, Normal Speech ED Course And Treatment - Laboratory Results Result Diagrams: 07/24/17 00:33 07/24/17 00:33 ECG: Interpreted By Me ECG Rhythm: Sinus Rhythm ECG Interpretation: Normal Interpretation Of ECG: nsr,IVCD in RBBB pattern,no ectopy,no acute STTW changes O2 Sat by Pulse Oximetry: 99 Medical Decision Making Medical Decision Making: Progress: Bloodwork, EKG, CXR ordered and reviewed. Bloodwork results are unremarkable. Disposition - Disposition Referrals: [facility] [Outside] Disposition: HOME/ ROUTINE Disposition Time: 01:22 Condition: FAIR Instructions: Chest Wall Pain (ED) Forms: [facility] (Amharic), Gen Discharge Inst Slovak Print Language: TURKMEN - Clinical Impression Clinical Impression: Chest wall pain
[2017-07-24] MEDS ORDERED: Naproxen 550 mg Tab PO ONE (00:27)
[2017-07-24 00:38] LABS: BASO % 0.3 % (0.0-2.0); EOS # 0.1 K/uL (0.0-0.7); EOS % 1.4 % (0.0-4.0); HEMOGLOBIN 16.4 g/dL (12.0-18.0); LYMPH # 2.7 K/uL (1.0-4.3); LYMPH % 31.8 % (20.0-40.0); MEAN CORPUSCULAR HEMOGLOBIN 30.7 pg (27.0-31.0); MEAN CORPUSCULAR HGB CONC 34.6 g/dL (33.0-37.0); MEAN PLATELET VOLUME 9.6 fL (7.2-11.7); MONO # 0.7 K/uL (0.0-0.8); NEUT % 58.5 % (50.0-75.0); RBC 5.32 Mil/uL (4.40-5.90); RED CELL DISTRIBUTION WIDTH 13.7 % (11.5-14.5); WHITE BLOOD COUNT 8.5 K/uL (4.8-10.8)
[2017-07-24 01:02] LABS: ALB/GLOB RATIO 1.3 (1.0-2.1); ALBUMIN 4.5 g/dL (3.5-5.0); ALT/SGPT 54 U/L (21-72); AST/SGOT 49 U/L (17-59); BLOOD UREA NITROGEN 11 mg/dL (9-20); CALCIUM 9.2 mg/dl (8.6-10.4); GFR AFRICAN-AMERICAN > 60; GFR NON-AFRICAN AMERICAN > 60
[2017-07-24 01:38] VITALS: BP 117/72; PULSE 86; TEMP 98.2
[2017-07-24 06:13] VITALS: O2SAT 99
--- NOTE | 2017-07-24 16:24 | CARD ---
APPROVED REPORT EKG Measurement Heart [id number] <Conclusion> Normal sinus rhythm Possible Left atrial enlargement RSR' or QR pattern in V1 suggests right ventricular conduction delay Borderline ECG
== END 2017-07-24 01:38 | disposition home or self-care (01) ==
LOC: C.ER 23:24
DX: R07.89 Other chest pain (principal); I10 Essential (primary) hypertension